=== PATIENT | female | born 1990 | race Caucasian/White ===

== ENCOUNTER → 2016-05-06 | Outpatient (CLI) | payer OTHER ==
--- NOTE | 2016-05-06 22:46 | US ---
EXAMINATION TYPE: US OB >= 14 wk fetus DATE OF EXAM: 05/06/2016 4:52 PM COMPARISON: None CLINICAL HISTORY: 26-year-old female O24.419 Gestational Diabetes, GROWTH / ALYSSA TECHNIQUE: Transabdominal (TA) FINDINGS: GESTATIONAL AGE / DATING Physician Established: (33 weeks/0 days) EDC: 06/24/16 Dates by LMP: unknown Dates by First Scan: (33 weeks/6 days) EDC: 06/18/16 Dates by Current Scan: (34 weeks/6 days) EDC: 06/11/16 SURVEY IUP: Single PLACENTA: Posterior PREVIA: No Previa ALYSSA: 12.7 cm Normal CERVICAL LENGTH (transabdominal: norm > 3.0cm): 3.0 cm BIOMETRY PRESENTATION: Vertex LIE: Longitudinal BPD: 8.5 cm 34 weeks / 2 days HC: 31.0 cm 34 weeks / 5 days AC: 31.0 cm 35 weeks / 0 days FL: 6.8 cm 35 weeks / 0 days ESTIMATED WEIGHT IN GRAMS: 2527 grams ESTIMATED WEIGHT IN LBS/OZS: 5 lbs. 9 oz. WEIGHT PERCENTAGE BASED ON ESTABLISHED DATES: 91% (versus 68% on 04/02/16) HC/AC: 1.00 Normal FL/AC: 22% Normal HEART RATE: 152 bpm RHYTHM: Normal IMPRESSION: 1. Single live intrauterine with established gestational age of 33 weeks 0 days. Current ul trasound biometry is larger (34 weeks 6 days). 2. This constitutes an increase in EFW from the 68th percentile on 04/02/2016 to the 91st percentile today. Consider continued follow-up to exclude early macrosomia. 3. Cervical length measured at 3.0 cm on transabdominal scanning.
== END | disposition home or self-care (01) ==
LOC: RADUSWWP 16:24
PROVIDERS: ATTEND Obstetrics & Gynecology
DX: O24.419 Gestational diabetes mellitus in pregnancy, unspecified control (principal); Z3A.34 34 weeks gestation of pregnancy
CPT/HCPCS: 76805